=== PATIENT | male | born 1990 ===

== ENCOUNTER 2016-12-10 20:06 | Emergency (ER) | payer MEDICAID, OTHER ==
[2016-12-10 20:06] VITALS: BMI 25.8
[2016-12-10 20:20] VITALS: BP 143/73; PULSE 60; RESP 18; TEMP 98; O2SAT 98
--- NOTE | 2016-12-10 21:18 | C.PDOC ---
History Of Present Illness A 25 year old male, whose past medical history includes asthma, presents to the emergency department for a laceration to his right thumb, which occurred at his job immediately prior to arrival. The patient states he cut his thumb with a farrell while trying to open the door. The patient denies any deformities, decreased sensation to thumb, weakness to injured finger or any other complaints at this time. Ambulate to ED, not in any apparent distress. Time Seen by Provider: 12/10/16 20:31 Chief Complaint (Nursing): Abnormal Skin Integrity History Per: Patient History/Exam Limitations: no limitations Onset/Duration Of Symptoms: Mins (x prior to arrival ) Past Medical History Reviewed: Historical Data, Nursing Documentation, Vital Signs Vital Signs: Last Vital Signs Temp 98 F 12/10/16 20:17 Pulse 60 12/10/16 20:17 Resp 18 12/10/16 20:17 BP 143/73 12/10/16 20:17 Pulse Ox 98 12/10/16 21:26 - Medical History PMH: Asthma Surgical History: No Surg Hx - [facility] Procedures INJECT/INFUSE NEC (07/22/14) Family History: States: Hypertension - Social History Hx Tobacco Use: No (quit 4 years ago) Hx Alcohol Use: No Hx Substance Use: Yes (marijuana) - Immunization History Hx Tetanus Toxoid Vaccination: No Hx Influenza Vaccination: Yes Hx Pneumococcal Vaccination: Yes Review Of Systems Except As Marked, All Systems Reviewed And Found Negative. Constitutional: Negative for: Fever Eyes: Negative for: Pain Cardiovascular: Negative for: Chest Pain Respiratory: Negative for: Cough, Shortness of Breath Skin: Positive for: Other (laceration to right thumb ) Physical Exam - Physical Exam Appears: Well, Non-toxic, No Acute Distress Skin: Normal Color, Warm, Other (Right thumb: V-shape 3 cm cutaneous laceration to dorsal aspect 1st distal phalanx just above 1st MCPJ. no edema, no erythema, no wound draining.) Extremity: Normal ROM (Right hand), No Tenderness, Capillary Refill (less than 2sec to Right thumb), No Deformity Neurological/Psych: Oriented x3, Normal Speech, Normal Motor, Normal Sensation, Normal Reflexes ED Course And Treatment O2 Sat by Pulse Oximetry: 98 Progress Note: On re-evaluation, pt is afebrile, hemodynamicaly stable. Non- toxic. Right hand: laceration over thumb repaired w/sutures w/o complication. FAROM of Right humb, no neurovascular deficits. Pt advised on wound care. ref. to f/u with PMD in 2-3 days for wound check as need. return to ED if any sign of ifection or any other new changes. Laceration - Laceration Repair Right thumb Wound Length (In cm): 3 Description Of Wound: Irregular Anesthesia: Lidocaine 2% Wound Examination: Irrigated With Saline, No FB With Wound Exploration, No Tendon Injury With Wound Exploration Wound Closure: Suture (#6) Suture Technique And Material Used: Interrupted, Nylon (5-0) Wound Complexity: Simple Medical Decision Making Medical Decision Making: Treatment Plan: -- Adacel Progress Notes: Disposition Counseled Patient/Family Regarding: Diagnosis, Need For Followup - Disposition Referrals: Non [facility] Provider, [Primary Care Provider] - [facility] [Outside] Disposition: HOME/ ROUTINE Disposition Time: 21:16 Condition: STABLE Additional Instructions: Keep wound clean, dry Apply antibiotic cream topicaly daily Suture removal in 7-10 days return to ED ta any time if any sign of infection Instructions: Laceration (ED) Forms: [facility] (Bhutanese), Work Excuse - Clinical Impression Clinical Impression: Laceration - Scribe Statement The provider has reviewed the documentation as recorded by the Scribe Janey Schneider All medical record entries made by the Scribe were at my direction and personally dictated by me. I have reviewed the chart and agree that the record accurately reflects my personal performance of the history, physical exam, medical decision making, and the department course for this patient. I have also personally directed, reviewed, and agree with the discharge instructions and disposition.
== END 2016-12-10 21:25 | disposition home or self-care (01) ==
LOC: SUPCPDRO 20:06 → C.ER 20:06
DX: S61.011A Laceration without foreign body of right thumb without damage to nail, initial encounter (principal); W45.8XXA Other foreign body or object entering through skin, initial encounter; Y93.89 Activity, other specified; Y92.89 Other specified places as the place of occurrence of the external cause; Y99.8 Other external cause status; Z23 Encounter for immunization